=== PATIENT | female | born 1955 | race Caucasian/White ===

== ENCOUNTER 2018-02-25 22:28 | Inpatient (IN) | payer OTHER ==
[2018-02-25] MEDS ORDERED: solu-MEDROL 125 MG IV ONE (22:37)
[2018-02-25] MEDS ORDERED: DUONEB 0.5-3 MG/3 ml Neb IH ONE ×2 (22:37)
[2018-02-25] MEDS ORDERED: Sodium Chloride 0.9% 1000 ML 1,000 ML IV SCH (22:45)
[2018-02-25] MEDS ORDERED: TYLENOL EXTRA STRENGTH 500 MG PO STA (22:49)
[2018-02-25] MEDS ORDERED: TYLENOL EXTRA STRENGTH 500 MG ONE (22:51)
[2018-02-25] MEDS ORDERED: solu-MEDROL 125 MG ONE (22:53)
[2018-02-25] MEDS ORDERED: Zithromax 500 MG/ 250 ML NaCl Premix 500 MG/250 ML IVPB IV STA (22:56)
[2018-02-25] MEDS ORDERED: ROCEPHIN 1 Gm-D5w 50 ml Bag** 1 G/50 ML IVPB IV STA (22:56)
--- NOTE | 2018-02-25 22:57 | ERPHSYRPT ---
- History of Present Illness Time Seen by Provider: 02/25/18 22:53 Source: patient, EMS Exam Limitations: no limitations Patient Subjective Stated Complaint: Pt brought in via ambulance stretcher. pt was found on the floor at home by family. pt states that she lost her balance and fell on her porch and hit her back. no obvious deformities. pt now has SOB. she was sat at 82% upon arrival and put on a non-rebreather and sat richar to 95% . pt recieved solu-medrol 125mg and duo-neb treatment en route to our facility. pt lung sounds wheezy and coarse bilat throughout. Triage Nursing Assessment: see above Physician History: pt was found on the floor at home by family. pt states that she lost her balance and fell on her porch and hit her back.Patient is complaining of shortness of breath for last two weaks. [place] to [place]. Timing/Duration: week(s) (two weeks) Severity of Dyspnea-Max: moderate Severity of Dyspnea-Current: moderate Possible Cause: frequent episodes Associated Symptoms: cough, fever, chills International travel in last 2 weeks: No Allergies/Adverse Reactions: promethazine [From Phenergan] Allergy (Verified 02/25/18 22:48) Sulfa (Sulfonamide Antibiotics) Allergy (Verified 02/25/18 22:48) Home Medications: Albuterol 2.5 mg/3 ml Neb [Proventil 2.5 mg/3 ml Neb] 2.5 mg IH TID [History] Amlodipine Besylate 5 mg PO DAILY 02/26/18 [History] Budesonide/Formoterol Fumarate [Symbicort 160-4.5 Mcg Inhaler] 2 puffs IH BID [History] Diazepam 5 mg PO BID 02/26/18 [History] Diphenhydramine HCl [Nighttime Sleep Aid] 25 mg PO HS PRN 02/26/18 [History] Gabapentin 300 mg PO BID 02/26/18 [History] Losartan/Hydrochlorothiazide [Losartan-Hctz 100-25 mg Tab] 1 tab PO DAILY [History] Potassium Chloride 20 Meq [Klor-Con 20 MEQ] 20 meq PO DAILY 02/26/18 [History] Sennosides/Docusate Sodium [Docusate Sodium-Sennosides Tab] 1 tab PO DAILY PRN PRN 02/26/18 [History] Sertraline HCl [Zoloft] 100 mg PO BID 02/26/18 [History] Immunizations Up to Date: Yes - Review of Systems Constitutional: Fever, No Chills Eyes: No Symptoms Ears, Nose, & Throat: No Symptoms Respiratory: Cough, Dyspnea, Dyspnea on Exertion (BRITT), Wheezing Cardiac: No Chest Pain, No Edema, No Syncope Abdominal/Gastrointestinal: No Abdominal Pain, No Nausea, No Vomiting, No Diarrhea Genitourinary Symptoms: No Dysuria Musculoskeletal: No Back Pain, No Neck Pain Skin: No Rash Neurological: No Dizziness, No Focal Weakness, No Sensory Changes Psychological: No Symptoms Endocrine: No Symptoms All Other Systems: Reviewed and Negative - Past Medical History Pertinent Past Medical History: Yes Neurological History: No Pertinent History ENT History: No Pertinent History Cardiac History: Hypertension Respiratory History: COPD Endocrine Medical History: No Pertinent History Musculoskeletal History: Fibromyalgia GI Medical History: No Pertinent History History: No Pertinent History Psycho-Social History: No Pertinent History Female Reproductive Disorders: No Pertinent History - Past Surgical History Past Surgical History: Yes Neuro Surgical History: No Pertinent History Cardiac: No Pertinent History Respiratory: No Pertinent History Gastrointestinal: Appendectomy, Cholecystectomy Genitourinary: No Pertinent History Musculoskeletal: No Pertinent History Female Surgical History: Hysterectomy, Section, Lumpectomy - Social History Smoking Status: Current every day smoker How long have you smoked: 30 years Drug Use: none - Nursing Vital Signs Nursing Vital Signs: Initial Vital Signs Temperature 100.1 F 02/25/18 22:30 Pulse Rate 122 H 02/25/18 22:30 Respiratory Rate 30 H 02/25/18 22:30 Blood Pressure 100/47 02/25/18 22:30 O2 Sat by Pulse Oximetry 94 L 02/25/18 22:30 Pain Scale Pain Intensity 10 - Physical Exam General Appearance: no apparent distress, alert Eye Exam: PERRL/EOMI Neck Exam: normal inspection, supple Respiratory Exam: diminished breath sounds, accessory muscle use, crackles/rales , rhonchi, wheezing Cardiovascular/Chest Exam: normal heart sounds, tachycardia Abdominal/Gastrointestinal Exam: soft, No tenderness, No distention, No mass Extremity Exam: non-tender, normal range of motion, normal inspection, no calf tenderness, no pedal edema Neurologic Exam: alert, oriented x 3, cooperative, 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, sensation nml, No motor deficits Skin Exam: normal color, warm, No dry SpO2 Interpretation: borderline oxygenation SpO2: 94 Oxygen Delivery: Non-rebreather - Course Nursing assessment & vital signs reviewed: Yes EKG Interpreted by Me: Sinus Tach Rhythm Strip: Sinus Tachycardia - Radiology Exams Chest X-ray Interpretation: Reviewed by me (right lower lobe pneumonia), Pneumonia Ordered Tests: Active Orders 24 hr Category Date Time Status Up Ad Ambika Q1H Activity 02/26/18 00:17 Active Code Status Order ROUTINE Care 02/26/18 00:17 Active EKG-ER Only STAT Care 02/25/18 22:37 Completed Fall Protocol Q1H Care 02/26/18 00:17 Active IV Care Q6H Care 02/26/18 00:[address] in Observation ROUTINE Care 02/26/18 00:17 Active Partha Dye, Apply ROUTINE Care 02/26/18 00:17 Active Regular Diet Diet 02/26/18 Breakfast Active CHEST 1 VIEW (PORTABLE) Stat Exams 02/25/18 22:37 Taken BLOOD CULTURE Stat Lab 02/25/18 23:30 Received CBC W DIFF AM.LAB Lab 02/26/18 05:13 Completed CBC W DIFF Stat Lab 02/25/18 23:00 Completed CMP AM.LAB Lab 02/26/18 05:13 Completed CMP Stat Lab 02/25/18 23:00 Completed Lactic Acid AM.LAB Lab 02/26/18 05:15 Results Lactic Acid Stat Lab 02/25/18 22:50 Completed NT PRO BNP Stat Lab 02/25/18 23:00 Completed Sputum Culture [CULTURE,SPUTUM] Stat Lab 02/25/18 23:22 Ordered TROPONIN Stat Lab 02/25/18 23:00 Completed Oxygen NASAL CANNULA 2 lpm RT 02/26/18 00:17 Active Pulse Oximetry CONTINUOUS RT 02/26/18 00:17 Active Respiratory Nebulizer STAT RT 02/25/18 22:39 Completed Respiratory Therapy Assessment DAILY RT 02/25/18 22:45 Completed Respiratory Therapy Consult ROUTINE RT 02/26/18 00:17 Completed Medication Summary Generic Name Dose Route Start Last Admin Trade Name Freq PRN Reason Stop Dose Admin Acetaminophen 650 mg 02/26/18 00:17 Tylenol 325 Mg PO 03/28/18 00:16 Q4H PRN PRN PAIN AND/OR FEVER Albuterol/Ipratropium 3 ml 02/26/18 03:00 02/26/18 06:35 Duoneb 0.5-3 Mg/3 Ml Neb IH 03/28/18 02:59 3 ml Q4HRT MELINDA Administration Enoxaparin Sodium 40 mg 02/26/18 10:00 Enoxaparin Sodium SQ 03/28/18 09:59 DAILY MELINDA Azithromycin 500 mg in 250 mls @ 250 mls/hr 02/26/18 10:00 Zithromax 500 Mg/ 250 Ml Nacl Premix IV 03/28/18 09:59 Q24H10 MELINDA Ceftriaxone Sodium/Dextrose 1 g in 50 mls @ 100 mls/hr 02/26/18 10:00 Rocephin 1 Gm-D5w 50 Ml Bag IV 03/28/18 09:59 Q24H10 MELINDA Potassium Chloride/Sodium Chloride 1,000 mls @ 50 mls/hr 02/26/18 00:45 02/26 00:48 Sodium Chloride 0.9% W/ 20 Meq Kcl/Liter IV 03/28/18 00:44 50 mls/hr .Q20H MELINDA Administration Methylprednisolone Sodium Succinate 80 mg 02/26/18 00:17 02/26/18 00:25 Solu-Medrol 125 Mg IV 03/28/18 00:16 Not Given Q6H MELINDA Ondansetron HCl 4 mg 02/26/18 00:17 Zofran 4 Mg/2 Ml Vial IV 03/28/18 00:16 Q6H PRN PRN NAUSEA/VOMITING Discontinued Medications Generic Name Dose Route Start Last Admin Trade Name Freq PRN Reason Stop Dose Admin Acetaminophen 1,000 mg 02/25/18 22:49 02/25/18 22:51 Tylenol Extra Strength 500 Mg PO 02/25/18 22:50 1,000 mg STAT STA Administration Acetaminophen Confirm 02/25/18 22:51 Tylenol Extra Strength 500 Mg Administered 02/25/18 22:52 Dose 1,000 mg .ROUTE .STK-MED ONE Albuterol/Ipratropium Confirm 02/25/18 22:37 Duoneb 0.5-3 Mg/3 Ml Neb Administered 02/25/18 22:38 Dose 3 ml IH .STK-MED ONE Albuterol/Ipratropium 3 ml 02/25/18 22:37 02/25/18 22:44 Duoneb 0.5-3 Mg/3 Ml Neb IH 02/25/18 22:38 3 ml STAT ONE Administration Sodium Chloride 1,000 mls @ 50 mls/hr 02/25/18 22:45 02/25/18 23:36 Sodium Chloride 0.9% 1000 Ml IV 03/27/18 22:44 50 mls/hr .Q20H MELINDA Administration Ceftriaxone Sodium/Dextrose 1 g in 50 mls @ 100 mls/hr 02/25/18 22:56 23:23 Rocephin 1 Gm-D5w 50 Ml Bag IV 02/25/18 23:25 100 mls/hr STAT STA 100 mls/hr Administration Azithromycin 500 mg in 250 mls @ 250 mls/hr 02/25/18 22:56 02/25/18 23:25 Zithromax 500 Mg/ 250 Ml Nacl Premix IV 02/25/18 23:55 250 mls/hr STAT STA 250 mls/hr Administration Azithromycin Confirm 02/25/18 22:59 Zithromax 500 Mg/ 250 Ml Nacl Premix Administered 02/25/18 23:00 Dose 500 mg in 250 mls @ ud IV .STK-MED ONE Ceftriaxone Sodium/Dextrose Confirm 02/25/18 22:59 Rocephin 1 Gm-D5w 50 Ml Bag Administered 02/25/18 23:00 Dose 1 g in 50 mls @ ud IV .STK-MED ONE Potassium Chloride/Sodium Chloride 1,000 mls @ 50 mls/hr 02/25/18 23:45 02/26 00:04 Sodium Chloride 0.9% W/ 20 Meq Kcl/Liter IV 03/27/18 23:44 50 mls/hr .Q20H MELINAD Administration Potassium Chloride/Sodium Chloride Confirm 02/26/18 00:01 Sodium Chloride 0.9% W/ 20 Meq Kcl/Liter Administered 02/26/18 00:02 Dose 1,000 mls @ ud IV .STK-MED ONE Sodium Chloride Confirm 02/25/18 23:15 Sodium Chloride 0.9% 1000 Ml Administered 02/25/18 23:16 Dose 1,000 mls @ ud .ROUTE .STK-MED ONE Sodium Chloride 1,000 mls @ 100 mls/hr 02/26/18 00:17 Sodium Chloride 0.9% 1000 Ml IV 03/28/18 00:16 .Q10H MELINDA Methylprednisolone Sodium Succinate 80 mg 02/25/18 22:37 02/25/18 22:57 Solu-Medrol 125 Mg IV 02/25/18 22:38 80 mg STAT ONE Administration Methylprednisolone Sodium Succinate Confirm 02/25/18 22:53 Solu-Medrol 125 Mg Administered 02/25/18 22:54 Dose 125 mg .ROUTE .STK-MED ONE Lab/Rad Data: Laboratory Result Diagrams 02/25/18 23:00 02/25/18 23:00 Laboratory Results 02/25/18 02/25/18 02/25/18 Range/Units 23:00 23:00 22:50 WBC 12.9 H (4.0-10.5) K/mm3 RBC 3.40 L (4.1-5.4) M/mm3 Hgb 10.1 L (12.0-16.0) gm/dl Hct 31.0 L (35-47) % MCV 91.2 (78-100) fl MCH 29.7 (26-32) pg MCHC 32.6 (32-36) g/dl RDW 15.9 H (11.5-14.0) % Plt Count 331 (150-450) K/mm3 MPV 10.3 H (6-9.5) fl Gran % 89.8 H (36.0-66.0) % Eos # (Auto) 0 (0-0.5) Absolute Lymphs (auto) 0.64 L (1.0-4.6) Absolute Monos (auto) 0.68 (0.0-1.3) Lymphocytes % 4.9 L (24.0-44.0) % Monocytes % 5.3 (0.0-12.0) % Eosinophils % 0.0 (0.00-5.0) % Basophils % 0.0 (0.0-0.4) % Absolute Granulocytes 11.61 H (1.4-6.9) Basophils # 0 (0-0.4) Sodium 136 L (137-145) mmol/L Potassium 3.0 L (3.5-5.1) mmol/L Chloride 98 (98-107) mmol/L Carbon Dioxide 28 (22-30) mmol/L Anion Gap 13.2 (5-15) MEQ/L BUN 33 H (7-17) mg/dL Creatinine 1.47 H (0.52-1.04) mg/dL Estimated GFR 38.4 ML/MIN Glucose 134 H (74-106) mg/dL Lactic Acid 2.2 H (0.4-2.0) Calcium 8.1 L (8.4-10.2) mg/dL Total Bilirubin 0.20 (0.2-1.3) mg/dL AST 13 L (14-36) U/L ALT 10 (0-35) U/L Alkaline Phosphatase 70 (38-126) U/L Troponin I 0.042 H* (0.000-0.034) ng/mL NT-Pro-B Natriuret Pep 947 H (0-900) pg/mL Serum Total Protein 6.6 (6.3-8.2) g/dL Albumin 3.7 (3.5-5.0) g/dL - Progress Air Movement: fair Blood Culture(s) Obtained: Yes Antibiotics given: Yes Discussed with : Irma Will see patient in: hospital (observation) Counseled pt/family regarding: lab results, diagnosis, need for follow-up - Departure Time of Disposition: 00:00 Departure Disposition: Observation Clinical Impression: Troponin level elevated Pneumonia Qualifiers: Pneumonia type: due to other aerobic Gram-negative bacteria Laterality: right Lung location: lower lobe of lung Qualified Code(s): J15.6 - Pneumonia due to other Gram-negative bacteria Condition: Fair Critical Care Time: Yes Critical Care Time(excluding separately billable procedures): 30-74 minutes
[2018-02-25] MEDS ORDERED: ROCEPHIN 1 Gm-D5w 50 ml Bag** 1 G/50 ML IVPB IV ONE (22:59)
[2018-02-25] MEDS ORDERED: Zithromax 500 MG/ 250 ML NaCl Premix 500 MG/250 ML IVPB IV ONE (22:59)
[2018-02-25 23:01] LABS: Basophil (Absolute #) 0 (0-0.4); Eosinophil (Absolute #) 0 (0-0.5); Granulocyte Absolute (ANC) 11.61 (1.4-6.9); Granulocytes % 89.8 % (36.0-66.0); Hemoglobin 10.1 gm/dl (12.0-16.0); Lymphocyte (Absolute #) 0.64 (1.0-4.6); Lymphocytes % 4.9 % (24.0-44.0); Mean Cell Volume 91.2 fl (78-100); Mean Corpuscular Hemoglobin 29.7 pg (26-32); Mean Corpuscular Hgb Concent. 32.6 g/dl (32-36); Mean Platelet Volume 10.3 fl (6-9.5); Monocyte (Absolute #) 0.68 (0.0-1.3); Monocytes % 5.3 % (0.0-12.0); Platelet Count 331 K/mm3 (150-450); Red Cell Distribution Width 15.9 % (11.5-14.0); White Blood Count 12.9 K/mm3 (4.0-10.5)
[2018-02-25 23:07] LABS: Lactic Acid 2.2 (0.4-2.0)
[2018-02-25] MEDS ORDERED: Sodium Chloride 0.9% 1000 ML 1,000 ML ONE (23:15)
[2018-02-25] MEDS ORDERED: Sodium Chloride 0.9% W/ 20 mEq KCl/LITER 1,000 ML IV SCH (23:45)
[2018-02-26] MEDS ORDERED: Sodium Chloride 0.9% W/ 20 mEq KCl/LITER 1,000 ML IV ONE (00:01)
[2018-02-26 00:05] LABS: ALBUMIN 3.7 g/dL (3.5-5.0); ANION GAP 13.2 MEQ/L (5-15); BILIRUBIN,TOTAL 0.2 mg/dL (0.2-1.3); Calcium 8.1 mg/dL (8.4-10.2); Creatinine 1 1.47 mg/dL (0.52-1.04); Total Protein 6.6 g/dL (6.3-8.2)
[2018-02-26] MEDS ORDERED: Sodium Chloride 0.9% 1000 ML 1,000 ML IV SCH (00:17)
[2018-02-26] MEDS: solu-MEDROL 125 MG IV SCH ×4 (00:25→19:54)
[2018-02-26 00:31] LABS: TROPONIN 0.042 ng/mL (0.000-0.034)
[2018-02-26] MEDS: Sodium Chloride 0.9% W/ 20 mEq KCl/LITER 1,000 ML IV SCH ×2 (00:48→19:53)
[2018-02-26] MEDS: DUONEB 0.5-3 MG/3 ml Neb IH SCH ×6 (03:01→23:31)
[2018-02-26 05:31] LABS: Lactic Acid 1.9 (0.4-2.0)
[2018-02-26 05:37] LABS: BASOPHIL % 0.1 % (0.0-0.4); Basophil (Absolute #) 0.01 (0-0.4); Eosinophil % 0.5 % (0.00-5.0); Eosinophil (Absolute #) 0.06 (0-0.5); Granulocyte Absolute (ANC) 11.39 (1.4-6.9); Granulocytes % 90.9 % (36.0-66.0); Hematocrit 31.7 % (35-47); Hemoglobin 10.1 gm/dl (12.0-16.0); Lymphocyte (Absolute #) 0.69 (1.0-4.6); Lymphocytes % 5.5 % (24.0-44.0); Mean Cell Volume 92.2 fl (78-100); Mean Corpuscular Hgb Concent. 31.9 g/dl (32-36); Monocyte (Absolute #) 0.38 (0.0-1.3); Platelet Count 231 K/mm3 (150-450); Red Blood Count 3.44 M/mm3 (4.1-5.4); Red Cell Distribution Width 16.2 % (11.5-14.0); White Blood Count 12.5 K/mm3 (4.0-10.5)
[2018-02-26 05:40] LABS: Mean Corpuscular Hemoglobin 29.3 pg (26-32)
[2018-02-26 05:57] LABS: ALBUMIN 3.5 g/dL (3.5-5.0); ANION GAP 14.9 MEQ/L (5-15); BILIRUBIN,TOTAL 0.1 mg/dL (0.2-1.3); Calcium 8.2 mg/dL (8.4-10.2); Creatinine 1 1.06 mg/dL (0.52-1.04); Potassium 3.4 mmol/L (3.5-5.1)
--- NOTE | 2018-02-26 06:45 | PCM.HP ---
History of Present Illness - Chief Complaint Chief Complaint: SOB for 2 weeks History of Present Illness: is a 62 year old female.Came to the emergency room with 2 weeks. History of shortness of breath, which got worse today and so she came to the emergency room. Patient has a significant past medical history of hypertension , coronary artery disease, chronic obstructive lung disease, and patient was recently diagnosed having a breast mass, which was removed. Couple 3 weeks ago. Patient is also complaining of fever with chills. - Review of Systems Constitutional: Fever, Chills, Fatigue, Weakness Eyes: No Symptoms Ears, Nose, & Throat: No Symptoms Respiratory: Cough, Orthopnea, Short Of Breath, Wheezing Cardiac: No Chest Pain, No Edema, No Syncope Abdominal/Gastrointestinal: No Abdominal Pain, No Nausea, No Vomiting, No Diarrhea Genitourinary Symptoms: No Dysuria Musculoskeletal: No Back Pain, No Neck Pain Skin: No Rash Neurological: No Dizziness, No Focal Weakness, No Sensory Changes Psychological: No Symptoms Endocrine: No Symptoms Hematologic/Lymphatic: No Symptoms Immunological/Allergic: No Symptoms Medications & Allergies Home Medications: Home Medication List Albuterol 2.5 mg/3 ml Neb [Proventil 2.5 mg/3 ml Neb] 2.5 mg IH TID [History Confirmed 02/26/18] Amlodipine Besylate 5 mg PO DAILY 02/26/18 [History Confirmed 02/26/18] Budesonide/Formoterol Fumarate [Symbicort 160-4.5 Mcg Inhaler] 2 puffs IH BID [History Confirmed 02/26/18] Diazepam 5 mg PO BID 02/26/18 [History Confirmed 02/26/18] Diphenhydramine HCl [Nighttime Sleep Aid] 25 mg PO HS PRN 02/26/18 [History Confirmed 02/26/18] Gabapentin 300 mg PO BID 02/26/18 [History Confirmed 02/26/18] Losartan/Hydrochlorothiazide [Losartan-Hctz 100-25 mg Tab] 1 tab PO DAILY [History Confirmed 02/26/18] Potassium Chloride 20 Meq [Klor-Con 20 MEQ] 20 meq PO DAILY 02/26/18 [History Confirmed 02/26/18] Sennosides/Docusate Sodium [Docusate Sodium-Sennosides Tab] 1 tab PO DAILY PRN PRN 02/26/18 [History Confirmed 02/26/18] Sertraline HCl [Zoloft] 100 mg PO BID 02/26/18 [History Confirmed 02/26/18] Allergies/Adverse Reactions: Allergies Allergy/AdvReac Type Severity Reaction Status Date / Time promethazine [From Phenergan] Allergy Verified 02/25/18 22:48 Sulfa (Sulfonamide Allergy Verified 02/25/18 22:48 Antibiotics) - Past Medical History Past Medical History: Yes Neurological History: No Pertinent History ENT History: No Pertinent History Cardiac History: Hypertension Respiratory History: COPD Endocrine Medical History: No Pertinent History Musculoskelatal History: Fibromyalgia GI Medical History: No Pertinent History History: No Pertinent History Pyscho-Social History: No Pertinent History Reproductive Disorders: No Pertinent History - Female History Are you now?: No - Past Surgical History Past Surgical History: Yes Neuro Surgical History: No Pertinent History Cardiac History: No Pertinent History Respiratory Surgery: No Pertinent History GI Surgical History: Appendectomy, Cholecystectomy Genitourinary Surgical Hx: No Pertinent History Musculskeletal Surgical Hx: No Pertinent History Female Surgical History: Hysterectomy, Section, Lumpectomy - Social History Smoking Status: Current every day smoker How long have you smoked: 30 years Exposure to second hand smoke: Yes Alcohol: None Drug Use: none - Physical Exam Vital Signs: Vital Signs - 24 hr Temp Pulse Resp BP Pulse Ox 02/26/18 06:35 78 22 95 02/26/18 04:08 97.8 F 80 26 H 98/51 98 02/26/18 04:00 26 H 02/26/18 03:02 81 26 H 98 02/26/18 01:07 99.2 F 101 H 28 H 97/48 97 02/26/18 00:17 95 02/25/18 23:50 110 H 28 H 106/49 94 L 02/25/18 23:20 94 L 02/25/18 23:20 112 H 30 H 100/50 97 02/25/18 22:49 103.6 F 02/25/18 22:45 119 H 30 H 95 02/25/18 22:30 100.1 F 122 H 30 H 100/47 93 L Oxygen-Last 24 hours Oxygen Flowrate (L/min)-RT 12 Oxygen Flowrate (L/min)-RT 12 General Appearance: moderate distress, alert Neurologic Exam: alert, oriented x 3, cooperative, normal mood/affect, nml cerebellar function, nml station & gait, sensation nml, No motor deficits Eye Exam: PERRL/EOMI, eyes nml inspection Ears, Nose, Throat Exam: normal ENT inspection, TMs normal, pharynx normal, moist mucous membranes Neck Exam: normal inspection, non-tender, supple, full range of motion Respiratory Exam: respiratory distress, diminished breath sounds, crackles/rales , rhonchi, wheezing Cardiovascular Exam: normal heart sounds, normal peripheral pulses, tachycardia Gastrointestinal/Abdomen Exam: soft, normal bowel sounds, No tenderness, No mass Back Exam: normal inspection, normal range of motion, No CVA tenderness, No vertebral tenderness Extremity Exam: normal inspection, normal range of motion, pelvis stable Skin Exam: normal color, warm, dry, No rash Lymphatic Exam: No adenopathy Results - Labs Lab/Micro Results: Lab Results-Last 24 Hours 02/25/18 02/25/18 02/25/18 Range/Units 22:50 23:00 23:00 WBC 12.9 H (4.0-10.5) K/mm3 RBC 3.40 L (4.1-5.4) M/mm3 Hgb 10.1 L (12.0-16.0) gm/dl Hct 31.0 L (35-47) % MCV 91.2 (78-100) fl MCH 29.7 (26-32) pg MCHC 32.6 (32-36) g/dl RDW 15.9 H (11.5-14.0) % Plt Count 331 (150-450) K/mm3 MPV 10.3 H (6-9.5) fl Gran % 89.8 H (36.0-66.0) % Eos # (Auto) 0 (0-0.5) Absolute Lymphs (auto) 0.64 L (1.0-4.6) Absolute Monos (auto) 0.68 (0.0-1.3) Lymphocytes % 4.9 L (24.0-44.0) % Monocytes % 5.3 (0.0-12.0) % Eosinophils % 0.0 (0.00-5.0) % Basophils % 0.0 (0.0-0.4) % Absolute Granulocytes 11.61 H (1.4-6.9) Basophils # 0 (0-0.4) Sodium 136 L (137-145) mmol/L Potassium 3.0 L (3.5-5.1) mmol/L Chloride 98 (98-107) mmol/L Carbon Dioxide 28 (22-30) mmol/L Anion Gap 13.2 (5-15) MEQ/L BUN 33 H (7-17) mg/dL Creatinine 1.47 H (0.52-1.04) mg/dL Estimated GFR 38.4 ML/MIN Glucose 134 H (74-106) mg/dL Lactic Acid 2.2 H (0.4-2.0) Calcium 8.1 L (8.4-10.2) mg/dL Total Bilirubin 0.20 (0.2-1.3) mg/dL AST 13 L (14-36) U/L ALT 10 (0-35) U/L Alkaline Phosphatase 70 (38-126) U/L Troponin I 0.042 H* (0.000-0.034) ng/mL NT-Pro-B Natriuret Pep 947 H (0-900) pg/mL Serum Total Protein 6.6 (6.3-8.2) g/dL Albumin 3.7 (3.5-5.0) g/dL 02/26/18 02/26/18 02/26/18 Range/Units 05:13 05:13 05:13 WBC 12.5 H (4.0-10.5) K/mm3 RBC 3.44 L (4.1-5.4) M/mm3 Hgb 10.1 L (12.0-16.0) gm/dl Hct 31.7 L (35-47) % MCV 92.2 (78-100) fl MCH 29.3 (26-32) pg MCHC 31.9 L (32-36) g/dl RDW 16.2 H (11.5-14.0) % Plt Count 231 (150-450) K/mm3 MPV 12.0 H (6-9.5) fl Gran % 90.9 H (36.0-66.0) % Eos # (Auto) 0.06 (0-0.5) Absolute Lymphs (auto) 0.69 L (1.0-4.6) Absolute Monos (auto) 0.38 (0.0-1.3) Lymphocytes % 5.5 L (24.0-44.0) % Monocytes % 3.0 (0.0-12.0) % Eosinophils % 0.5 (0.00-5.0) % Basophils % 0.1 (0.0-0.4) % Absolute Granulocytes 11.39 H (1.4-6.9) Basophils # 0.01 (0-0.4) Sodium 139 (137-145) mmol/L Potassium 3.4 L (3.5-5.1) mmol/L Chloride 101 (98-107) mmol/L Carbon Dioxide 27 (22-30) mmol/L Anion Gap 14.9 (5-15) MEQ/L BUN 30 H (7-17) mg/dL Creatinine 1.06 H (0.52-1.04) mg/dL Estimated GFR 56.0 ML/MIN Glucose 165 H (74-106) mg/dL Lactic Acid (0.4-2.0) Calcium 8.2 L (8.4-10.2) mg/dL Total Bilirubin 0.10 L (0.2-1.3) mg/dL AST 14 (14-36) U/L ALT 10 (0-35) U/L Alkaline Phosphatase 72 (38-126) U/L Troponin I 0.098 H* (0.000-0.034) ng/mL NT-Pro-B Natriuret Pep (0-900) pg/mL Serum Total Protein 6.0 L (6.3-8.2) g/dL Albumin 3.5 (3.5-5.0) g/dL 02/26/18 Range/Units 05:15 WBC (4.0-10.5) K/mm3 RBC (4.1-5.4) M/mm3 Hgb (12.0-16.0) gm/dl Hct (35-47) % MCV (78-100) fl MCH (26-32) pg MCHC (32-36) g/dl RDW (11.5-14.0) % Plt Count (150-450) K/mm3 MPV (6-9.5) fl Gran % (36.0-66.0) % Eos # (Auto) (0-0.5) Absolute Lymphs (auto) (1.0-4.6) Absolute Monos (auto) (0.0-1.3) Lymphocytes % (24.0-44.0) % Monocytes % (0.0-12.0) % Eosinophils % (0.00-5.0) % Basophils % (0.0-0.4) % Absolute Granulocytes (1.4-6.9) Basophils # (0-0.4) Sodium (137-145) mmol/L Potassium (3.5-5.1) mmol/L Chloride (98-107) mmol/L Carbon Dioxide (22-30) mmol/L Anion Gap (5-15) MEQ/L BUN (7-17) mg/dL Creatinine (0.52-1.04) mg/dL Estimated GFR ML/MIN Glucose (74-106) mg/dL Lactic Acid 1.9 (0.4-2.0) Calcium (8.4-10.2) mg/dL Total Bilirubin (0.2-1.3) mg/dL AST (14-36) U/L ALT (0-35) U/L Alkaline Phosphatase (38-126) U/L Troponin I (0.000-0.034) ng/mL NT-Pro-B Natriuret Pep (0-900) pg/mL Serum Total Protein (6.3-8.2) g/dL Albumin (3.5-5.0) g/dL - Radiology Impressions Radiology Exams & Impressions: Radiology Procedures Category Date Time Status CHEST 1 VIEW (PORTABLE) Stat Exams 02/25/18 22:37 Taken - Other Procedures and Tests Respiratory Therapy 02/26/18 00:17 Oxygen NASAL CANNULA 2 lpm 02/26/18 02:55 Respiratory Therapy Assessment DAILY 02/26/18 02:56 Peak Expiratory Flow Rate ONCE Assessment/Plan (1) Pneumonia Current Visit: Yes Status: Acute Qualifiers: Pneumonia type: due to other aerobic Gram-negative bacteria Laterality: right Lung location: lower lobe of lung Qualified Code(s): J15.6 - Pneumonia due to other Gram-negative bacteria Assessment & Plan: With admit the patient as observation. We will start patient on IV antibiotic. Patient has triggered. Septis protocol so we will follow the septis protocol. Patient is started on ceftriaxone and Zithromax IV. Patient is not DuoNeb nebulizer treatment, as well as Solu-Medrol 80 mg 3 times a day. Code(s): J18.9 - PNEUMONIA, UNSPECIFIED ORGANISM (2) Troponin level elevated Current Visit: Yes Status: Acute Code(s): R74.8 - ABNORMAL LEVELS OF OTHER SERUM ENZYMES (3) HTN (hypertension) Current Visit: Yes Status: Acute Qualifiers: Hypertension type: essential hypertension Qualified Code(s): I10 - Essential (primary) hypertension Code(s): I10 - ESSENTIAL (PRIMARY) HYPERTENSION (4) Breast mass in female Current Visit: Yes Status: Acute Code(s): N63.0 - UNSPECIFIED LUMP IN UNSPECIFIED BREAST (5) COPD (chronic obstructive pulmonary disease) with acute bronchitis Current Visit: Yes Status: Acute Code(s): J44.0 - CHRONIC OBSTRUCTIVE PULMON DISEASE W ACUTE LOWER RESP INFCT; J20.9 - ACUTE BRONCHITIS, UNSPECIFIED
[2018-02-26] MEDS: TYLENOL 325 MG PO PRN ×2 (06:58→17:05)
[2018-02-26] MEDS ORDERED: Nitrostat 0.4 MG Tablet SL ONE (07:30)
[2018-02-26 08:24] LABS: Slide Review 1 YES
[2018-02-26] MEDS ORDERED: ENOXAPARIN SODIUM SQ SCH (10:00)
[2018-02-26] MEDS: ECOTRIN 81 MG PO SCH (10:18)
[2018-02-26] MEDS: Lopressor 25MG Tab PO SCH ×2 (10:18→21:40)
[2018-02-26] MEDS: Protonix 40MG Tablet PO SCH (10:18)
--- NOTE | 2018-02-26 10:55 | XRAY ---
Indication: Short of breath. Comparison: None Portable chest hyperinflated with right mid to lower lung infiltrate and small effusion. Remaining heart and lungs unremarkable. Bony thorax intact with mild osteopenia and degenerative changes.
[2018-02-26] MEDS ORDERED: DIPHENHYDRAMINE HCL 25 MG PO PRN (14:32)
[2018-02-26] MEDS ORDERED: Senokot-S Tablet PO PRN (14:32)
[2018-02-26] MEDS ORDERED: BENADRYL 25 MG CAPSULE PO PRN (14:35)
[2018-02-26] MEDS ORDERED: MEDICATION INTERVENTION MC SCH (14:45)
[2018-02-26] MEDS: Klor Con 10 MEQ PO SCH (15:21)
[2018-02-26] MEDS: NORVASC 5 MG PO SCH (15:21)
[2018-02-26] MEDS: Cozaar 50 MG PO SCH (15:21)
[2018-02-26] MEDS: hydroDIURIL 25 MG PO SCH (15:22)
[2018-02-26] MEDS: PERCOCET TABLET 5/325MG PO PRN ×2 (17:57→22:15)
[2018-02-26] MEDS: Advair Hfa 230/21 Mcg COMMON CANISTER IH SCH (19:38)
[2018-02-26] MEDS: ROCEPHIN 1 Gm-D5w 50 ml Bag** 1 G/50 ML IVPB IV SCH (21:32)
[2018-02-26] MEDS: ZOLOFT 50 MG TABLET PO SCH (21:33)
[2018-02-26] MEDS: NEURONTIN 300 MG PO SCH (21:34)
[2018-02-26] MEDS: Valium 5 MG PO SCH (21:34)
[2018-02-26] MEDS: Zofran 4 MG/2 ML VIAL IV PRN (21:40)
[2018-02-26] MEDS ORDERED: NON-FORMULARY ITEM (Budesonide/Formoterol Fumarate [Symbicort 160-4.5 Mcg Inhaler] 2 PUFFS IH SCH (22:00)
[2018-02-26] MEDS: Zithromax 500 MG/ 250 ML NaCl Premix 500 MG/250 ML IVPB IV SCH (22:15)
[2018-02-27] MEDS: solu-MEDROL 125 MG IV SCH ×4 (00:58→17:34)
[2018-02-27] MEDS: DUONEB 0.5-3 MG/3 ml Neb IH SCH ×6 (03:25→23:00)
[2018-02-27] MEDS: PERCOCET TABLET 5/325MG PO PRN ×4 (04:07→21:17)
[2018-02-27] MEDS: Advair Hfa 230/21 Mcg COMMON CANISTER IH SCH ×2 (06:30→18:38)
[2018-02-27] MEDS: hydroDIURIL 25 MG PO SCH (09:39)
[2018-02-27] MEDS: Klor Con 10 MEQ PO SCH (09:39)
[2018-02-27] MEDS: Protonix 40MG Tablet PO SCH (09:39)
[2018-02-27] MEDS: ZOLOFT 50 MG TABLET PO SCH ×2 (09:39→21:17)
[2018-02-27] MEDS: ENOXAPARIN SODIUM SQ SCH (09:39)
[2018-02-27] MEDS: Cozaar 50 MG PO SCH (09:39)
[2018-02-27] MEDS: NORVASC 5 MG PO SCH (09:39)
[2018-02-27] MEDS: Valium 5 MG PO SCH ×2 (09:39→21:17)
[2018-02-27] MEDS: ECOTRIN 81 MG PO SCH (09:39)
[2018-02-27] MEDS: NEURONTIN 300 MG PO SCH ×2 (09:39→21:17)
[2018-02-27] MEDS: Lopressor 25MG Tab PO SCH ×2 (09:39→21:17)
[2018-02-27] MEDS ORDERED: NON-FORMULARY ITEM (Potassium Chloride 20 Meq [Klor-Con 20 Meq] 20 MEQ) PO SCH (10:00)
[2018-02-27] MEDS ORDERED: NON-FORMULARY ITEM (Losartan/Hydrochlorothiazide [Losartan-Hctz 100-25 Mg Tab] 1 TAB) PO SCH (10:00)
--- NOTE | 2018-02-27 12:18 | PCM.NOTE ---
Date and Time: 02/27/18 1217 Subjective Assessment: still very short of breath - Review of Systems Constitutional: No Fever, No Chills Eyes: No Symptoms Ears, Nose, & Throat: No Symptoms Respiratory: Cough, Orthopnea, Short Of Breath Cardiac: No Chest Pain, No Edema, No Syncope Abdominal/Gastrointestinal: No Abdominal Pain, No Nausea, No Vomiting, No Diarrhea Genitourinary Symptoms: No Dysuria Musculoskeletal: No Back Pain, No Neck Pain Skin: No Rash Neurological: No Dizziness, No Focal Weakness, No Sensory Changes Psychological: No Symptoms Endocrine: No Symptoms Hematologic/Lymphatic: No Symptoms Immunological/Allergic: No Symptoms Objective Exam General Appearance: no apparent distress, alert Neurologic Exam: alert, oriented x 3, cooperative, normal mood/affect, nml cerebellar function, sensation nml, No motor deficits Skin Exam: normal color, warm, dry Eye Exam: PERRL, EOMI, eyes nml inspection Ears, Nose, Throat Exam: normal ENT inspection, pharynx normal, moist mucous membranes Neck Exam: normal inspection, non-tender, supple, full range of motion Respiratory Exam: diminished breath sounds, prolonged expirations, crackles/ rales, rhonchi, No respiratory distress Cardiovascular Exam: regular rate/rhythm, normal heart sounds Gastrointestinal/Abdomen Exam: soft, No tenderness, No mass Extremity Exam: normal inspection, normal range of motion Back Exam: normal inspection, normal range of motion, No CVA tenderness, No vertebral tenderness Pelvic Exam: deferred Rectal Exam: deferred OBJECTIVE DATA Vital Signs: Vital Signs - 24 hr Temp Pulse Resp BP Pulse Ox 02/27/18 11:34 98.0 F 74 18 98/53 91 L 02/27/18 07:39 98.0 F 80 24 108/54 94 L 02/27/18 06:30 80 24 94 L 02/27/18 04:23 97.6 F 65 24 113/58 95 02/27/18 04:00 28 H 02/27/18 03:26 65 24 95 02/27/18 00:00 28 H 02/26/18 23:40 97.7 F 81 28 H 103/55 92 L 02/26/18 23:32 71 26 H 95 02/26/18 20:00 30 H 02/26/18 19:40 98.1 F 79 30 H 109/55 92 L 02/26/18 19:38 80 24 94 L 02/26/18 15:00 98.3 F 89 24 110/53 93 L 02/26/18 14:29 74 24 97 Oxygen-Last 24 hours O2 Percentage 3 Liters = 32% O2 Percentage 3 Liters = 32% O2 Percentage 3 Liters = 32% O2 Percentage 4 Liters = 36% O2 Percentage 5 Liters = 40% Pain Assessment - Last Documented Pain Intensity 6 Pain Scale Used 0-10 Pain Scale Intake and Output: Intake & Output 02/25/18 02/26/18 02/27/18 02/28/18 11:59 11:59 11:59 11:59 Intake Total 763 2949 480 Output Total 800 1400 Balance -37 1549 480 Weight 63.5 kg Lab Results: Lab Results-Last 24 Hours 02/26/18 Range/Units 11:50 Troponin I 0.052 H* (0.000-0.034) ng/mL Radiology Exams: Radiology Procedures Category Date Time Status CHEST 1 VIEW (PORTABLE) Stat Exams 02/25/18 22:37 Completed Multi-Disciplinary Progress Notes: Multi-Disciplinary Progress Notes 02/27/18 08:30 (created 02/27/18 10:11) Case Management Note by Yolanda Zuniga CALL TO [facility] FOR PT TO SEE IF THEY CAN TRANSFER OXYGEN FROM [facility]. FAXED DEMOGRAPHICS AND INSURANCE CARD TO [facility]. SPOKE WITH RODY FINE REPORTS THAT THEY ARE IN NETWORK WITH THAT PROVIDER, REPORTS THAT THEY WILL HAVE TO CALL INSURANCE FOR PRECERT. DISCUSSED THAT PT WOULD LIKELY BE HERE FOR THE NEXT 2-[address] LOUIS. RODY REPORTS THAT SHE WILL CALL BACK WITH INFORMATION. Initialized on 02/27/18 10:11 - END OF NOTE 02/27/18 08:05 (created 02/27/18 10:15) Case Management Note by Yolanda Zuniga DISCHARGE PLAN REVIEWED WITH PT, NORMALLY PROVIDES SELF CARE AND IS INDEPENDENT WITH ALL ADL'S. HAS A WALKER AT HOME THAT SHE USES PRN. PT HAS HOME OXYGEN FROM PROVIDER [place], AND WANTING TO TRANSFER TO [facility]. REPORTS THAT SHE HAS CALLED [facility] AND SPOKEN WITH THEM. DISCUSSED THAT I WOULD CALL AND F/U WITH [facility]. DENIES ADDNL NEEDS FOR DISCHARGE. PLANNING TO RETURN HOME WITH TO PRE EPISODIC LEVEL OF FNX. Initialized on 02/27/18 10:15 - END OF NOTE 02/26/18 12:39 Case Management Note by Azucena Camacho PT INFORMED THIS NURSE THAT SHE HAS 3 APPOINTMENT IN [place], WHICH IS [address], ON Tuesday02/28/2018 AT 1000, 1300, AND 1545. SHE WILL GET THE RECENT RESULTS OF THE BREAST LUMPECTOMY AT THAT TIME AT ONE OF THE APPOINTMENTS AND IS ANXIOUS THAT SHE DOES NOT MISS IT. Initialized on 02/26/18 12:39 - END OF NOTE 02/26/18 12:32 Case Management Note by Azucena Camacho DISCHARGE PLANS REVIEWED WITH PATIENT. PT WEARS GLASSES AND FULL DENTURES. SHE DOES USE OXYGEN AT HOME, NEEDED, ALSO HAS A NEBULIZER NEEDED, SHE RECENTLY MOVED FROM [facility], AND THESE PRODUCTS WERE SUPPLIED BY A LOCAL DISTRIBUTOR AND SHE WOULD LIKE TO HAVE [employer] IN [place] SUPPLY HER RESPIRATORY NEEDS. SHE HAS ONE TANK THAT WAS SENT WITH HER FROM HER PREVIOUS VENDOR. MS MORENO ALSO NEEDS TO ESTABLISH WITH A LOCAL HYDROLOGIST, AND WOULD BE HAPPY WITH DR. VINICIO CHAVEZ. SHE ALSO HAS A WALKER AT HOME THAT SHE USES WHEN AMBULATING ANY DISTANCE. AT THIS TIME SHE DENIES NEED FOR ANY FURTHER. WILL CONTINUE TO MONITOR FOR ALL D/C NEEDS. Initialized on 02/26/18 12:32 - END OF NOTE Assessment/Plan (1) Pneumonia Current Visit: Yes Status: Acute Onset Date: ~02/26/18 Qualifiers: Pneumonia type: due to other aerobic Gram-negative bacteria Laterality: right Lung location: lower lobe of lung Qualified Code(s): J15.6 - Pneumonia due to other Gram-negative bacteria Code(s): J18.9 - PNEUMONIA, UNSPECIFIED ORGANISM (2) Troponin level elevated Current Visit: Yes Status: Acute Onset Date: ~02/26/18 Code(s): R74.8 - ABNORMAL LEVELS OF OTHER SERUM ENZYMES (3) HTN (hypertension) Current Visit: Yes Status: Acute Onset Date: ~02/26/18 Qualifiers: Hypertension type: essential hypertension Qualified Code(s): I10 - Essential (primary) hypertension Code(s): I10 - ESSENTIAL (PRIMARY) HYPERTENSION (4) Breast mass in female Current Visit: Yes Status: Acute Onset Date: ~02/26/18 Code(s): N63.0 - UNSPECIFIED LUMP IN UNSPECIFIED BREAST (5) COPD (chronic obstructive pulmonary disease) with acute bronchitis Current Visit: Yes Status: Acute Onset Date: ~02/26/18 Code(s): J44.0 - CHRONIC OBSTRUCTIVE PULMON DISEASE W ACUTE LOWER RESP INFCT; J20.9 - ACUTE BRONCHITIS, UNSPECIFIED
[2018-02-27] MEDS: Sodium Chloride 0.9% W/ 20 mEq KCl/LITER 1,000 ML IV SCH (18:32)
[2018-02-27] MEDS: ROCEPHIN 1 Gm-D5w 50 ml Bag** 1 G/50 ML IVPB IV SCH (21:18)
[2018-02-27] MEDS: Zithromax 500 MG/ 250 ML NaCl Premix 500 MG/250 ML IVPB IV SCH (22:52)
[2018-02-28] MEDS: DUONEB 0.5-3 MG/3 ml Neb IH SCH ×6 (03:13→23:35)
[2018-02-28] MEDS: solu-MEDROL 125 MG IV SCH ×4 (05:30→18:58)
[2018-02-28] MEDS: PERCOCET TABLET 5/325MG PO PRN ×4 (05:50→21:02)
[2018-02-28] MEDS: Advair Hfa 230/21 Mcg COMMON CANISTER IH SCH ×2 (06:45→18:47)
[2018-02-28] MEDS ORDERED: FLUZONE QUAD (36mo-64yo) 2018-2019 SYRINGE IM ONE (10:00)
[2018-02-28] MEDS: NEURONTIN 300 MG PO SCH ×2 (10:02→22:15)
[2018-02-28] MEDS: NORVASC 5 MG PO SCH (10:02)
[2018-02-28] MEDS: Valium 5 MG PO SCH ×2 (10:02→21:03)
[2018-02-28] MEDS: ZOLOFT 50 MG TABLET PO SCH ×2 (10:02→21:03)
[2018-02-28] MEDS: Lopressor 25MG Tab PO SCH ×2 (10:03→21:03)
[2018-02-28] MEDS: Protonix 40MG Tablet PO SCH (10:03)
[2018-02-28] MEDS: ECOTRIN 81 MG PO SCH (10:03)
[2018-02-28] MEDS: Klor Con 10 MEQ PO SCH (10:03)
[2018-02-28] MEDS: hydroDIURIL 25 MG PO SCH (10:03)
[2018-02-28] MEDS: Cozaar 50 MG PO SCH (10:04)
[2018-02-28] MEDS: ENOXAPARIN SODIUM SQ SCH (10:06)
--- NOTE | 2018-02-28 10:09 | XRAY ---
Indication: Short of breath. Pneumonia. Comparison: February 25, 2018. PA/lateral chest again hyperinflated with mild clearing of previous right mid to lower lung infiltrate and small effusion which still persists. New lingular subsegmental atelectasis and tiny left effusion. Remaining heart and lungs unremarkable.
[2018-02-28 10:41] LABS: Hematocrit 28.5 % (35-47); Hemoglobin 8.8 gm/dl (12.0-16.0); Mean Corpuscular Hemoglobin 29.3 pg (26-32); Mean Corpuscular Hgb Concent. 30.9 g/dl (32-36); Mean Platelet Volume 10.3 fl (6-9.5); Platelet Count 370 K/mm3 (150-450); Red Cell Distribution Width 16.3 % (11.5-14.0)
[2018-02-28 11:08] LABS: ALBUMIN 3.4 g/dL (3.5-5.0); ALKALINE PHOSPHATASE 64 U/L (38-126); ANION GAP 13.1 MEQ/L (5-15); BILIRUBIN,TOTAL < 0.10 mg/dL (0.2-1.3); BLOOD UREA NITROGEN 31 mg/dL (7-17); CHLORIDE 107 mmol/L (98-107); Calcium 8.3 mg/dL (8.4-10.2); Carbon Dioxide 26 mmol/L (22-30); Creatinine 1 0.95 mg/dL (0.52-1.04); Glucose 171 mg/dL (74-106); Potassium 3.6 mmol/L (3.5-5.1); SGOT/AST 18 U/L (14-36); SGPT/ALT 16 U/L (0-35); SODIUM 143 mmol/L (137-145); Total Protein 6.1 g/dL (6.3-8.2)
[2018-02-28 11:19] LABS: BAND 1 % (0.0-2.0); Lymphocytes 5 % (24-44); Monocyte 2 % (0.0-12.0); Neutrophils 92 % (36.0-66.0); Total Cells Counted 100
[2018-02-28 11:20] LABS: Platelet Estimate NORMAL (NORMAL); Toxic Granulation 1+
[2018-02-28 11:34] LABS: ANISOCYTOSIS 1+
--- NOTE | 2018-02-28 11:41 | PCM.NOTE ---
Date and Time: 02/28/18 1141 Subjective Assessment: doing better - Review of Systems Constitutional: No Fever, No Chills Eyes: No Symptoms Ears, Nose, & Throat: No Symptoms Respiratory: Cough, Orthopnea, Short Of Breath, Wheezing Cardiac: No Chest Pain, No Edema, No Syncope Abdominal/Gastrointestinal: No Abdominal Pain, No Nausea, No Vomiting, No Diarrhea Genitourinary Symptoms: No Dysuria Musculoskeletal: No Back Pain, No Neck Pain Skin: No Rash Neurological: No Dizziness, No Focal Weakness, No Sensory Changes Psychological: No Symptoms Endocrine: No Symptoms Hematologic/Lymphatic: No Symptoms Immunological/Allergic: No Symptoms Objective Exam General Appearance: no apparent distress, alert Neurologic Exam: alert, oriented x 3, cooperative, normal mood/affect, nml cerebellar function, sensation nml, No motor deficits Skin Exam: normal color, warm, dry Eye Exam: PERRL, EOMI, eyes nml inspection Ears, Nose, Throat Exam: normal ENT inspection, pharynx normal, moist mucous membranes Neck Exam: normal inspection, non-tender, supple, full range of motion Respiratory Exam: normal breath sounds, lungs clear, No respiratory distress Cardiovascular Exam: regular rate/rhythm, normal heart sounds Gastrointestinal/Abdomen Exam: soft, No tenderness, No mass Extremity Exam: normal inspection, normal range of motion Back Exam: normal inspection, normal range of motion, No CVA tenderness, No vertebral tenderness Pelvic Exam: deferred Rectal Exam: deferred OBJECTIVE DATA Vital Signs: Vital Signs - 24 hr Temp Pulse Resp BP Pulse Ox 02/28/18 11:11 75 28 H 96 02/28/18 07:28 97.4 F 82 20 127/59 96 02/28/18 06:49 73 26 H 94 L 02/28/18 04:00 97.7 F 77 28 H 121/61 94 L 02/28/18 03:13 74 20 94 L 02/28/18 00:00 97.9 F 75 29 H 118/56 93 L 02/27/18 23:00 75 29 H 93 L 02/27/18 20:00 20 02/27/18 19:43 97.8 F 75 20 117/57 97 02/27/18 18:36 75 20 97 02/27/18 15:49 97.6 F 78 20 111/56 96 02/27/18 14:31 72 84 H 93 L Oxygen-Last 24 hours O2 Percentage 3 Liters = 32% O2 Percentage 3 Liters = 32% O2 Percentage 3 Liters = 32% O2 Percentage 3 Liters = 32% O2 Percentage 3 Liters = 32% Pain Assessment - Last Documented Pain Intensity 10 Pain Scale Used 0-10 Pain Scale Intake and Output: Intake & Output 02/25/18 02/26/18 02/27/18 02/28/18 11:59 11:59 11:59 11:59 Intake Total 763 2949 3389 Output Total 800 1400 800 Balance -37 1549 2589 Weight 63.5 kg Lab Results: Lab Results-Last 24 Hours 02/28/18 02/28/18 Range/Units 10:28 10:28 WBC 9.0 (4.0-10.5) K/mm3 RBC 3.00 L (4.1-5.4) M/mm3 Hgb 8.8 L (12.0-16.0) gm/dl Hct 28.5 L (35-47) % MCV 95.0 (78-100) fl MCH 29.3 (26-32) pg MCHC 30.9 L (32-36) g/dl RDW 16.3 H (11.5-14.0) % Plt Count 370 (150-450) K/mm3 MPV 10.3 H (6-9.5) fl Segmented Neutrophils 92 H (36.0-66.0) % Band Neutrophils 1 (0.0-2.0) % Lymphocytes (Manual) 5 L (24-44) % Monocytes (Manual) 2 (0.0-12.0) % Toxic Granulation 1+ Platelet Estimate NORMAL (NORMAL) RBC Morphology ABNORMAL Anisocytosis 1+ Sodium 143 (137-145) mmol/L Potassium 3.6 (3.5-5.1) mmol/L Chloride 107 (98-107) mmol/L Carbon Dioxide 26 (22-30) mmol/L Anion Gap 13.1 (5-15) MEQ/L BUN 31 H (7-17) mg/dL Creatinine 0.95 (0.52-1.04) mg/dL Estimated GFR > 60.0 ML/MIN Glucose 171 H (74-106) mg/dL Calcium 8.3 L (8.4-10.2) mg/dL Total Bilirubin < 0.10 L (0.2-1.3) mg/dL AST 18 (14-36) U/L ALT 16 (0-35) U/L Alkaline Phosphatase 64 (38-126) U/L Serum Total Protein 6.1 L (6.3-8.2) g/dL Albumin 3.4 L (3.5-5.0) g/dL Radiology Exams: Radiology Procedures Category Date Time Status CHEST 2 VIEWS (PA AND LAT) Routine Exams 02/28/18 09:56 Completed Assessment/Plan (1) Pneumonia Current Visit: Yes Status: Acute Onset Date: ~02/26/18 Qualifiers: Pneumonia type: due to other aerobic Gram-negative bacteria Laterality: right Lung location: lower lobe of lung Qualified Code(s): J15.6 - Pneumonia due to other Gram-negative bacteria Code(s): J18.9 - PNEUMONIA, UNSPECIFIED ORGANISM (2) Troponin level elevated Current Visit: Yes Status: Acute Onset Date: ~02/26/18 Code(s): R74.8 - ABNORMAL LEVELS OF OTHER SERUM ENZYMES (3) HTN (hypertension) Current Visit: Yes Status: Acute Onset Date: ~02/26/18 Qualifiers: Hypertension type: essential hypertension Qualified Code(s): I10 - Essential (primary) hypertension Code(s): I10 - ESSENTIAL (PRIMARY) HYPERTENSION (4) Breast mass in female Current Visit: Yes Status: Acute Onset Date: ~02/26/18 Code(s): N63.0 - UNSPECIFIED LUMP IN UNSPECIFIED BREAST (5) COPD (chronic obstructive pulmonary disease) with acute bronchitis Current Visit: Yes Status: Acute Onset Date: ~02/26/18 Code(s): J44.0 - CHRONIC OBSTRUCTIVE PULMON DISEASE W ACUTE LOWER RESP INFCT; J20.9 - ACUTE BRONCHITIS, UNSPECIFIED
--- NOTE | 2018-02-28 12:43 | PCM.DS ---
Discharge Summary Date of Admission: 02/27/18 09:00 Admitting Physician: LISETTE LOUIS Primary Care Provider: LISETTE LOUIS Allergies Allergies promethazine [From Phenergan] Allergy (Verified 02/25/18 22:48) Sulfa (Sulfonamide Antibiotics) Allergy (Verified 02/25/18 22:48) Hospital Summary - Hospital Course Hospital Course: Last Vital Signs Temp 98.5 F 02/28/18 11:41 Pulse 80 02/28/18 11:41 Resp 20 02/28/18 11:41 BP 148/71 02/28/18 11:41 Pulse Ox 97 02/28/18 11:41 Allergies promethazine [From Phenergan] Allergy (Verified 02/25/18 22:48) Sulfa (Sulfonamide Antibiotics) Allergy (Verified 02/25/18 22:48) Active Medications Acetaminophen (Tylenol 325 Mg) 650 mg PO Q4H PRN PRN PRN Reason: PAIN AND/OR FEVER Stop: 03/28/18 00:16 Last Admin: 02/26/18 17:05 Dose: 650 mg Albuterol/Ipratropium (Duoneb 0.5-3 Mg/3 Ml Neb) 3 ml IH Q4HRT [facility] Stop: 03/28/18 02:59 Last Admin: 02/28/18 11:07 Dose: 3 ml Amlodipine Besylate (Norvasc 5 Mg) 5 mg PO DAILY MELINDA Stop: 03/28/18 14:59 Last Admin: 02/28/18 10:02 Dose: 5 mg Aspirin (Ecotrin 81 Mg) 81 mg PO DAILY MELINDA Stop: 03/28/18 09:59 Last Admin: 02/28/18 10:03 Dose: 81 mg Diazepam (Valium 5 Mg) 5 mg PO BID MELINDA Stop: 03/28/18 21:59 Last Admin: 02/28/18 10:02 Dose: 5 mg Diphenhydramine HCl (Benadryl 25 Mg Capsule) 25 mg PO HS PRN PRN PRN Reason: SLEEP Stop: 03/28/18 14:34 Last Admin: 02/27/18 23:16 Dose: 25 mg Enoxaparin Sodium (Enoxaparin Sodium) 30 mg SQ DAILY MELINDA Stop: 03/29/18 09:59 Last Admin: 02/28/18 10:06 Dose: 30 mg Gabapentin (Neurontin 300 Mg) 300 mg PO BID MELINDA Stop: 03/28/18 21:59 Last Admin: 02/28/18 10:02 Dose: 300 mg Hydrochlorothiazide (Hydrodiuril 25 Mg) 25 mg PO DAILY MELINDA Stop: 03/28/18 14:59 Last Admin: 02/28/18 10:03 Dose: 25 mg Azithromycin (Zithromax 500 Mg/ 250 Ml Nacl Premix) 500 mg in 250 mls @ 250 mls /hr IV QPM MELINDA Stop: 03/28/18 21:59 Last Admin: 02/27/18 22:52 Dose: 250 mls/hr Ceftriaxone Sodium/Dextrose (Rocephin 1 Gm-D5w 50 Ml Bag) 1 g in 50 mls @ 100 mls/hr IV QPM MELINDA Stop: 03/28/18 21:59 Last Admin: 02/27/18 21:18 Dose: 100 mls/hr Potassium Chloride/Sodium Chloride (Sodium Chloride 0.9% W/ 20 Meq Kcl/Liter) 1 ,000 mls @ 50 mls/hr IV .Q20H MELINDA Stop: 03/28/18 00:44 Last Admin: 02/27/18 18:32 Dose: 50 mls/hr Losartan Potassium (Cozaar 50 Mg) 100 mg PO DAILY MELINDA Stop: 03/28/18 14:59 Last Admin: 02/28/18 10:04 Dose: 100 mg Methylprednisolone Sodium Succinate (Solu-Medrol 125 Mg) 80 mg IV Q6H MELINDA Stop: 03/28/18 00:16 Last Admin: 02/28/18 12:03 Dose: 80 mg Metoprolol Tartrate (Lopressor 25mg Tab) 12.5 mg PO BID MELINDA Stop: 03/28/18 09:59 Last Admin: 02/28/18 10:03 Dose: 12.5 mg Miscellaneous Information (Medication Intervention) 1 each MC .RT TO CHECK ON MELINDA Stop: 03/28/18 14:44 Ondansetron HCl (Zofran 4 Mg/2 Ml Vial) 4 mg IV Q6H PRN PRN PRN Reason: NAUSEA/VOMITING Stop: 03/28/18 00:16 Last Admin: 02/26/18 21:40 Dose: 4 mg Oxycodone/Acetaminophen (Percocet Tablet 5/325mg) 1 tab PO Q4H PRN PRN PRN Reason: PAIN Stop: 03/03/18 17:43 Last Admin: 02/28/18 11:10 Dose: 1 tab Pantoprazole Sodium (Protonix 40mg Tablet) 40 mg PO DAILY MELINDA Stop: 03/28/18 09:59 Last Admin: 02/28/18 10:03 Dose: 40 mg Potassium Chloride (Klor Con 10 Meq) 20 meq PO DAILY MELINDA Stop: 03/28/18 14:59 Last Admin: 02/28/18 10:03 Dose: 20 meq Fluticasone/Salmeterol (Advair Hfa 230/21 Mcg Common Canister*) 2 puff IH BIDRT MELINDA Stop: 03/28/18 18:59 Last Admin: 02/28/18 06:45 Dose: 2 puff Senna/Docusate Sodium (Senokot-S Tablet) 1 udtab PO DAILY PRN PRN PRN Reason: CONSTIPATION Stop: 03/28/18 14:31 Sertraline HCl (Zoloft 50 Mg Tablet) 100 mg PO BID MELINDA Stop: 03/28/18 21:59 Last Admin: 02/28/18 10:02 Dose: 100 mg Intake & Output 02/28/18 03/01/18 11:59 11:59 Intake Total 3389 Output Total 800 Balance 2589 Lab Tests 02/28/18 02/28/18 10:28 10:28 WBC 9.0 RBC 3.00 L Hgb 8.8 L Hct 28.5 L MCV 95.0 MCH 29.3 MCHC 30.9 L RDW 16.3 H Plt Count 370 MPV 10.3 H Segmented Neutrophils 92 H Band Neutrophils 1 Lymphocytes (Manual) 5 L Monocytes (Manual) 2 Toxic Granulation 1+ Platelet Estimate NORMAL RBC Morphology ABNORMAL Anisocytosis 1+ Sodium 143 Potassium 3.6 Chloride 107 Carbon Dioxide 26 Anion Gap 13.1 BUN 31 H Creatinine 0.95 Estimated GFR > 60.0 Glucose 171 H Calcium 8.3 L Total Bilirubin < 0.10 L AST 18 ALT 16 Alkaline Phosphatase 64 Serum Total Protein 6.1 L Albumin 3.4 L Microbiology 02/25/18 23:22 Sputum - Expectorant Gram Stain - Final 02/25/18 23:22 Sputum - Expectorant Sputum Culture - Preliminary - Vitals & Intake/Output Vital Signs: Vital Signs Temperature 98.5 F 02/28/18 11:41 Pulse Rate 80 02/28/18 11:41 Respiratory Rate 20 02/28/18 11:41 Blood Pressure 148/71 02/28/18 11:41 O2 Sat by Pulse Oximetry 97 02/28/18 11:41 Oxygen-Last Documented O2 Percentage 3 Liters = 32% Intake & Output: Intake & Output 02/26/18 02/27/18 02/28/18 03/01/18 11:59 11:59 11:59 11:59 Intake Total 763 2949 3389 Output Total 800 1400 800 Balance -37 1549 2589 Weight 63.5 kg - Lab Result Diagrams: 02/28/18 10:28 02/28/18 10:28 Lab Results-Last 24 Hrs: Lab Results-Last 24 Hours 02/28/18 02/28/18 Range/Units 10:28 10:28 WBC 9.0 (4.0-10.5) K/mm3 RBC 3.00 L (4.1-5.4) M/mm3 Hgb 8.8 L (12.0-16.0) gm/dl Hct 28.5 L (35-47) % MCV 95.0 (78-100) fl MCH 29.3 (26-32) pg MCHC 30.9 L (32-36) g/dl RDW 16.3 H (11.5-14.0) % Plt Count 370 (150-450) K/mm3 MPV 10.3 H (6-9.5) fl Segmented Neutrophils 92 H (36.0-66.0) % Band Neutrophils 1 (0.0-2.0) % Lymphocytes (Manual) 5 L (24-44) % Monocytes (Manual) 2 (0.0-12.0) % Toxic Granulation 1+ Platelet Estimate NORMAL (NORMAL) RBC Morphology ABNORMAL Anisocytosis 1+ Sodium 143 (137-145) mmol/L Potassium 3.6 (3.5-5.1) mmol/L Chloride 107 (98-107) mmol/L Carbon Dioxide 26 (22-30) mmol/L Anion Gap 13.1 (5-15) MEQ/L BUN 31 H (7-17) mg/dL Creatinine 0.95 (0.52-1.04) mg/dL Estimated GFR > 60.0 ML/MIN Glucose 171 H (74-106) mg/dL Calcium 8.3 L (8.4-10.2) mg/dL Total Bilirubin < 0.10 L (0.2-1.3) mg/dL AST 18 (14-36) U/L ALT 16 (0-35) U/L Alkaline Phosphatase 64 (38-126) U/L Serum Total Protein 6.1 L (6.3-8.2) g/dL Albumin 3.4 L (3.5-5.0) g/dL Micro Results-Entire Visit: Microbiology 02/25/18 23:22 Gram Stain - Final Sputum - Expectorant Sputum Culture - Preliminary 02/25/18 23:30 Blood Culture - Preliminary Blood NO GROWTH TO DATE 02/25/18 23:05 Blood Culture - Preliminary Blood NO GROWTH TO DATE - Radiology Exams Ordered Rad Exams-Entire Visit: Radiology Procedures Category Date Time Status CHEST 2 VIEWS (PA AND LAT) Routine Exams 02/28/18 09:56 Completed - Procedures and Test Procedures and Tests throughout Hospitalization: Therapy Orders & Screens 02/25/18 22:39 Respiratory Nebulizer STAT Comment: Diagnosis: Shortness of Breath 02/25/18 22:45 Respiratory Therapy Assessment DAILY Comment: Diagnosis: Shortness of Breath 02/26/18 00:17 Oxygen NASAL CANNULA 2 lpm Comment: Diagnosis: Shortness of Breath Respiratory Therapy Consult ROUTINE Comment: Reason For Exam: Diagnosis: Shortness of Breath 02/26/18 01:31 OT Screen per Nursing Assess Comment: Protocol Order Physician Instructions: Greater than 3 points order OT Admission Screening Reason For Exam: Triggered on Admission Diagnosis: SOB Open Wound/Cellutlitis/Pressure Ulcers: No Acute Fx/ORIF/Change in wt bearing status: No Severe MUSCULOSKELETAL pain: No ADL Dysfunction: Yes Acute CVA w/Hemiparesis/Hemiplegia: No Decreased Functional Mobility/Strength: Yes Sprain/Strain: No Acute Post-op Mobility Dysfunction: No Total Points: 4 PT Screen per Nursing Assess Comment: Protocol Order Physician Instructions: Greater than 3 points order PT Admission Screenin Reason For Exam: Triggered on Admission Diagnosis: SOB Open Wound/Cellutlitis/Pressure Ulcers: No Acute Fx/ORIF/Change in wt bearing status: No Severe MUSCULOSKELETAL pain: No ADL Dysfunction: Yes Acute CVA w/Hemiparesis/Hemiplegia: No Decreased Functional Mobility/Strength: Yes Sprain/Strain: No Acute Post-op Mobility Dysfunction: No Total Points: 4 RT Screen per Nursing Assess Comment: Protocol Order Physician Instructions: Greater than 3 points order RT Admission Screen Reason For Exam: Triggered on Admission Diagnosis: SOB Diagnosis: SOB Pneumonia: Yes Home O2: Yes: wears 2-3L at home. Asthma: No CHF: No Home CPAP/BIPAP: No Home Nebs/MDI: Yes Total Points: 13 Smoking Cessation Education ONCE Comment: Diagnosis: SOB Smoking Status: Current every day smoker How long have you smoked: 30 years Have you smoked in the past 12 months: Yes 02/26/18 02:55 Respiratory Therapy Assessment DAILY Comment: Diagnosis: SOB 02/26/18 02:56 Peak Expiratory Flow Rate ONCE Comment: Reason For Exam: Diagnosis: SOB 02/26/18 07:03 EKG STAT Comment: Diagnosis: SOB for 2 weeks 02/26/18 16:30 Respiratory MDI BID Comment: Diagnosis: SOB for 2 weeks Discharge Exam General Appearance: no apparent distress, alert Neurologic Exam: alert, oriented x 3, cooperative, normal mood/affect, nml cerebellar function, sensation nml, No motor deficits Skin Exam: normal color, warm, dry Eye Exam: PERRL, EOMI, eyes nml inspection Ears, Nose, Throat Exam: normal ENT inspection, pharynx normal, moist mucous membranes Neck Exam: normal inspection, non-tender, supple, full range of motion Respiratory Exam: normal breath sounds, lungs clear, No respiratory distress Cardiovascular Exam: regular rate/rhythm, normal heart sounds Gastrointestinal/Abdomen Exam: soft, No tenderness, No mass Extremity Exam: normal inspection, normal range of motion Back Exam: normal inspection, normal range of motion, No CVA tenderness, No vertebral tenderness Pelvic Exam: deferred Rectal Exam: deferred Final Diagnosis/Problem List - Final Discharge Diagnosis/Problem (1) Pneumonia Current Visit: Yes Status: Resolved Priority: High Onset Date: ~02/26/18 (2) Troponin level elevated Current Visit: Yes Status: Resolved Onset Date: ~02/26/18 (3) HTN (hypertension) Current Visit: Yes Status: Chronic Onset Date: ~02/26/18 (4) Breast mass in female Current Visit: Yes Status: Acute Onset Date: ~02/26/18 Assessment & Plan: appointment arranged with Dr Mildred guo (oncology) (5) COPD (chronic obstructive pulmonary disease) with acute bronchitis Current Visit: Yes Status: Acute Onset Date: ~02/26/18 Assessment & Plan: Last Vital Signs Temp 98.5 F 02/28/18 11:41 Pulse 80 02/28/18 11:41 Resp 20 02/28/18 11:41 BP 148/71 02/28/18 11:41 Pulse Ox 97 02/28/18 11:41 Allergies promethazine [From Phenergan] Allergy (Verified 02/25/18 22:48) Sulfa (Sulfonamide Antibiotics) Allergy (Verified 02/25/18 22:48) Active Medications Acetaminophen (Tylenol 325 Mg) 650 mg PO Q4H PRN PRN PRN Reason: PAIN AND/OR FEVER Stop: 03/28/18 00:16 Last Admin: 02/26/18 17:05 Dose: 650 mg Albuterol/Ipratropium (Duoneb 0.5-3 Mg/3 Ml Neb) 3 ml IH Q4HRT MELINDA Stop: 03/28/18 02:59 Last Admin: 02/28/18 11:07 Dose: 3 ml Amlodipine Besylate (Norvasc 5 Mg) 5 mg PO DAILY MELINDA Stop: 03/28/18 14:59 Last Admin: 02/28/18 10:02 Dose: 5 mg Aspirin (Ecotrin 81 Mg) 81 mg PO DAILY MELINDA Stop: 03/28/18 09:59 Last Admin: 02/28/18 10:03 Dose: 81 mg Diazepam (Valium 5 Mg) 5 mg PO BID MELINDA Stop: 03/28/18 21:59 Last Admin: 02/28/18 10:02 Dose: 5 mg Diphenhydramine HCl (Benadryl 25 Mg Capsule) 25 mg PO HS PRN PRN PRN Reason: SLEEP Stop: 03/28/18 14:34 Last Admin: 02/27/18 23:16 Dose: 25 mg Enoxaparin Sodium (Enoxaparin Sodium) 30 mg SQ DAILY MELINDA Stop: 03/29/18 09:59 Last Admin: 02/28/18 10:06 Dose: 30 mg Gabapentin (Neurontin 300 Mg) 300 mg PO BID MELINDA Stop: 03/28/18 21:59 Last Admin: 02/28/18 10:02 Dose: 300 mg Hydrochlorothiazide (Hydrodiuril 25 Mg) 25 mg PO DAILY MELINDA Stop: 03/28/18 14:59 Last Admin: 02/28/18 10:03 Dose: 25 mg Azithromycin (Zithromax 500 Mg/ 250 Ml Nacl Premix) 500 mg in 250 mls @ 250 mls /hr IV QPM MELINDA Stop: 03/28/18 21:59 Last Admin: 02/27/18 22:52 Dose: 250 mls/hr Ceftriaxone Sodium/Dextrose (Rocephin 1 Gm-D5w 50 Ml Bag) 1 g in 50 mls @ 100 mls/hr IV QPM MELINDA Stop: 03/28/18 21:59 Last Admin: 02/27/18 21:18 Dose: 100 mls/hr Potassium Chloride/Sodium Chloride (Sodium Chloride 0.9% W/ 20 Meq Kcl/Liter) 1 ,000 mls @ 50 mls/hr IV .Q20H MELINDA Stop: 03/28/18 00:44 Last Admin: 02/27/18 18:32 Dose: 50 mls/hr Losartan Potassium (Cozaar 50 Mg) 100 mg PO DAILY MELINDA Stop: 03/28/18 14:59 Last Admin: 02/28/18 10:04 Dose: 100 mg Methylprednisolone Sodium Succinate (Solu-Medrol 125 Mg) 80 mg IV Q6H MELINDA Stop: 03/28/18 00:16 Last Admin: 02/28/18 12:03 Dose: 80 mg Metoprolol Tartrate (Lopressor 25mg Tab) 12.5 mg PO BID MELINDA Stop: 03/28/18 09:59 Last Admin: 02/28/18 10:03 Dose: 12.5 mg Miscellaneous Information (Medication Intervention) 1 each MC .RT TO CHECK ON MELINDA Stop: 03/28/18 14:44 Ondansetron HCl (Zofran 4 Mg/2 Ml Vial) 4 mg IV Q6H PRN PRN PRN Reason: NAUSEA/VOMITING Stop: 03/28/18 00:16 Last Admin: 02/26/18 21:40 Dose: 4 mg Oxycodone/Acetaminophen (Percocet Tablet 5/325mg) 1 tab PO Q4H PRN PRN PRN Reason: PAIN Stop: 03/03/18 17:43 Last Admin: 02/28/18 11:10 Dose: 1 tab Pantoprazole Sodium (Protonix 40mg Tablet) 40 mg PO DAILY MELINDA Stop: 03/28/18 09:59 Last Admin: 02/28/18 10:03 Dose: 40 mg Potassium Chloride (Klor Con 10 Meq) 20 meq PO DAILY MELINDA Stop: 03/28/18 14:59 Last Admin: 02/28/18 10:03 Dose: 20 meq Fluticasone/Salmeterol (Advair Hfa 230/21 Mcg Common Canister*) 2 puff IH BIDRT MELINDA Stop: 03/28/18 18:59 Last Admin: 02/28/18 06:45 Dose: 2 puff Senna/Docusate Sodium (Senokot-S Tablet) 1 udtab PO DAILY PRN PRN PRN Reason: CONSTIPATION Stop: 03/28/18 14:31 Sertraline HCl (Zoloft 50 Mg Tablet) 100 mg PO BID MELINDA Stop: 03/28/18 21:59 Last Admin: 02/28/18 10:02 Dose: 100 mg Intake & Output 02/28/18 03/01/18 11:59 11:59 Intake Total 3389 Output Total 800 Balance 2589 Lab Tests 02/28/18 02/28/18 10:28 10:28 WBC 9.0 RBC 3.00 L Hgb 8.8 L Hct 28.5 L MCV 95.0 MCH 29.3 MCHC 30.9 L RDW 16.3 H Plt Count 370 MPV 10.3 H Segmented Neutrophils 92 H Band Neutrophils 1 Lymphocytes (Manual) 5 L Monocytes (Manual) 2 Toxic Granulation 1+ Platelet Estimate NORMAL RBC Morphology ABNORMAL Anisocytosis 1+ Sodium 143 Potassium 3.6 Chloride 107 Carbon Dioxide 26 Anion Gap 13.1 BUN 31 H Creatinine 0.95 Estimated GFR > 60.0 Glucose 171 H Calcium 8.3 L Total Bilirubin < 0.10 L AST 18 ALT 16 Alkaline Phosphatase 64 Serum Total Protein 6.1 L Albumin 3.4 L Microbiology 02/25/18 23:22 Sputum - Expectorant Gram Stain - Final 02/25/18 23:22 Sputum - Expectorant Sputum Culture - Preliminary we will continue patient on duoneb nebulizer treatmentand continue oxygen 3 liter NC. - Discharge Discharge Date: 03/01/18 Disposition: Home, Self-Care Condition: Stable Prescriptions: New Fluticasone/Salmeterol 230/21 [Advair Hfa 230/21 Mcg COMMON CANISTER*] 2 puff IH BIDRT #60 aer.w.[email or web address] Cephalexin Mh 500 mg [Keflex 500 mg] 500 mg PO QID #30 capsule Metoprolol Tartrate 25 mg [Lopressor 25MG Tab] 12.5 mg PO BID #60 tab Oxycodone/APAP 5 mg/325 mg [Percocet Tablet 5/325Mg] 1 tab PO Q4H PRN PRN tablet PRN Reason: Pain Continue Diazepam 5 mg PO BID Amlodipine Besylate 5 mg PO DAILY Gabapentin 300 mg PO BID Sennosides/Docusate Sodium [Docusate Sodium-Sennosides Tab] 1 tab PO DAILY PRN PRN PRN Reason: Constipation Diphenhydramine HCl [Nighttime Sleep Aid] 25 mg PO HS PRN PRN Reason: Insomnia Potassium Chloride 20 Meq [Klor-Con 20 MEQ] 20 meq PO DAILY Losartan/Hydrochlorothiazide [Losartan-Hctz 100-25 mg Tab] 1 tab PO DAILY Sertraline HCl [Zoloft] 100 mg PO BID Budesonide/Formoterol Fumarate [Symbicort 160-4.5 Mcg Inhaler] 2 puffs IH BID Albuterol 2.5 mg/3 ml Neb [Proventil 2.5 mg/3 ml Neb] 2.5 mg IH TID Omeprazole 20 MG [Prilosec 20 mg] 20 mg PO DAILY Instructions: Chronic Obstructive Pulmonary Disease (COPD), Including Emphysema , Breast Cancer, Pneumonia, Adult (DC) Additional Instructions: CALL [facility] AT HOME AT [phone] TO SET UP HOME OXYGEN Follow up with: VINICIO CHAVEZ [ACTIVE STAFF] - 03/14/18 9:30 am ([facility]) LISETTE LOUIS MD [Primary Care Provider] - 03/03/18 9:15 am ([facility]) ADALGISA GUO MD [NON-STAFF PHY W/O PRIVILEGES] - 03/02/18 9:30 am ([facility]3])
[2018-02-28] MEDS: Sodium Chloride 0.9% W/ 20 mEq KCl/LITER 1,000 ML IV SCH (16:32)
[2018-02-28] MEDS: TORAdol 30 mg Injection IV PRN (17:45)
[2018-02-28] MEDS: ROCEPHIN 1 Gm-D5w 50 ml Bag** 1 G/50 ML IVPB IV SCH (21:02)
[2018-02-28] MEDS: Zithromax 500 MG/ 250 ML NaCl Premix 500 MG/250 ML IVPB IV SCH (23:22)
[2018-02-28] MEDS: Robitussin-Dm Syrup PO PRN (23:23)
[2018-03-01] MEDS: solu-MEDROL 125 MG IV SCH ×3 (01:39→12:20)
[2018-03-01] MEDS: PERCOCET TABLET 5/325MG PO PRN ×4 (01:39→18:34)
[2018-03-01] MEDS: Zofran 4 MG/2 ML VIAL IV PRN (01:46)
[2018-03-01] MEDS: DUONEB 0.5-3 MG/3 ml Neb IH SCH ×5 (03:24→19:26)
[2018-03-01] MEDS: Advair Hfa 230/21 Mcg COMMON CANISTER IH SCH ×2 (06:11→19:27)
[2018-03-01] MEDS: Robitussin-Dm Syrup PO PRN ×2 (06:32→10:48)
[2018-03-01] MEDS: Sodium Chloride 0.9% W/ 20 mEq KCl/LITER 1,000 ML IV SCH (10:44)
[2018-03-01] MEDS: TORAdol 30 mg Injection IV PRN ×2 (10:50→18:35)
[2018-03-01] MEDS: ECOTRIN 81 MG PO SCH (10:51)
[2018-03-01] MEDS: Cozaar 50 MG PO SCH (10:51)
[2018-03-01] MEDS: ENOXAPARIN SODIUM SQ SCH (10:51)
[2018-03-01] MEDS: Klor Con 10 MEQ PO SCH (10:52)
[2018-03-01] MEDS: hydroDIURIL 25 MG PO SCH (10:52)
[2018-03-01] MEDS: Protonix 40MG Tablet PO SCH (10:53)
[2018-03-01] MEDS: NEURONTIN 300 MG PO SCH (10:53)
[2018-03-01] MEDS: Lopressor 25MG Tab PO SCH (10:53)
[2018-03-01] MEDS: NORVASC 5 MG PO SCH (10:53)
[2018-03-01] MEDS: Valium 5 MG PO SCH (10:54)
[2018-03-01] MEDS: ZOLOFT 50 MG TABLET PO SCH (10:54)
[2018-03-01] MEDS ORDERED: MAALOX ES 30 ML UNIT DOSE PO PRN (14:49)
[2018-03-01] MEDS ORDERED: THEOPHYLLINE ER 24HR PO SCH (15:00)
[2018-03-01] MEDS ORDERED: solu-MEDROL 125 MG IV SCH (18:00)
[2018-03-01 19:31] VITALS: PULSE 86; O2SAT 96
[2018-03-01 20:50] VITALS: BP 128/65
--- NOTE | 2018-03-02 08:39 | CONS ---
CONSULT DATE: 03/01/2018 HISTORY: Mikayla Ko is a 62 year-old woman with history of chronic obstructive pulmonary disease who recently moved to [facility] from [place], [place]. The patient reported that she has had long standing lung problems and underwent bronchoscopy for pulmonary toilet in summer of this year. Her symptoms did improve some. However, she has been experiencing more cough, shortness of breath and wheezing. Since admission she has been treated with IV steroids along with bronchodilators with minimal improvement so far. The patient had a breast biopsy performed recently which showed confirmation of breast carcinoma. She is scheduled to have oncologic evaluation tomorrow as outpatient. At the time of my evaluation the patient appears moderately short of breath at rest. She has also been on supplemental oxygen. According to family her effort tolerance has been significantly reduced. Unfortunately, she continues to smoke. PAST MEDICAL HISTORY: Positive for chronic obstructive pulmonary disease, chronic respiratory failure, anxiety disorder and breast carcinoma as reported above. Pulmonary reports are currently not available. PAST SURGICAL HISTORY: No recent surgery other than biopsy. PERSONAL AND SOCIAL HISTORY: She smokes one pack of cigarettes per day. MEDICATIONS: Home and current medications are reviewed. ALLERGIES: ALLERGIES NOTED. PHYSICAL EXAMINATION: This is a middle aged woman who appears mild to moderately short of breath at rest. Vital signs are noted. HEENT: Normocephalic. Pupils are reactive. Oral exam is limited. NECK: Supple. CVS: First and second heart sounds are normal, regular, rhythmic. RESPIRATORY: Shows diminished breath sounds. Bilateral fairly diffuse rhonchi heard. ABDOMEN: Soft. EXTREMITIES: No edema is noted. LABORATORY DATA AND TESTS: X-rays reviewed. ASSESSMENT: This is a 62 year old woman admitted with: 1) Chronic obstructive pulmonary disease with exacerbation. 2) Acute bronchitis. 3) Hypoxia. 4) Breast malignancy in need of further treatment. 5) Nicotine addiction. 6) Frailty. RECOMMENDATIONS: Continue IV steroids, will increase dose of Solu-Medrol every six hours, continue bronchodilators, will add the patient on oral theophylline given IV theophylline is not available and continue antibiotics and deep venous thrombosis prophylaxis. Most importantly the patient is in no shape to be discharged from hospital at this point. I discussed with her that oncology appointment can be rescheduled at a later point. Discussed case with Dr. Solis who advised that the patient may be transferred to [facility] while she getting tuned up from pulmonary standpoint, oncology and surgical consultation can be obtained. This was discussed with the patient and she is in agreement. Thank you for allowing me to participate in the care of this patient.
== END 2018-03-01 21:07 | disposition short-term general hospital (02) | DRG 194 ==
LOC: ED 22:28 → MED SURG 02-26 00:16 → OBSVTOIN 02-27 09:00
PROVIDERS: ADMIT General Practice; ATTEND General Practice
DX: J18.9 Pneumonia, unspecified organism (principal); J44.1 Chronic obstructive pulmonary disease with (acute) exacerbation; R74.8 Abnormal levels of other serum enzymes; I10 Essential (primary) hypertension; N63.0 Unspecified lump in unspecified breast; J20.9 Acute bronchitis, unspecified; Z72.0 Tobacco use; R09.02 Hypoxemia; F17.200 Nicotine dependence, unspecified, uncomplicated; R54 Age-related physical debility
CPT/HCPCS: 36415; 71045; 71046; 80053; 83605; 83880; 84484; 85025; 87040; 87070; 87077; 90686; 93005; 93268; 94150; 94640; 94760; 94762; 94770; 96360; 96365; 96374; 99285; 99291; J0456; J0696; J1650; J1885; J2405; J2930; A9270-GY; G0378